=== PATIENT | female | born 1955 | race Caucasian/White ===

== ENCOUNTER 2016-08-17 14:52 | Emergency (ER) | payer OTHER ==
[~2016-08-17] VITALS: Ht 170.2 cm; Wt 90.9 kg
[~2016-08-17 14:52] MED LIST: ALBU18HF INH; BECL8.7A5 IH; DOCU250C2 PO; DULO30CA PO; ESTR0.5T PO; GABA-502 PO; HYDR25CA PO; IMI100 PO; LISI-567 PO; METH-313 PO; METO100T3 PO; ONDA4TAB6 PO; OXYC-169 PO; OXYC40TA46 PO; POLY17PO6 PO; PROM25TA14 PO; SENN8.6T63 PO; SOLI10TA PO; TRIA60LO12 TOPICAL; UREA 40%; [UNRECOGNIZED DRUG - OTHER]
[2016-08-17 14:54] VITALS: BP 145/101; PULSE 75; RESP 20; O2SAT 96
--- NOTE | 2016-08-17 15:15 | ED.REPORT ---
HPI-Chest Pain 40 and Over Date of Service Aug 17, 2016 ED Provider: Marlon Fuentes MD This is a 61 year old female with a history of hypertension, chronic back pain , s/p c-spine surgeries and multiple low back surgeries presenting to the emergency department complaining of chest pain that began 16 hours ago. Pt visited the fire station due to chest pain where BP was measured at 159/110, she drove to the ED at that time. Pt discusses at length increased stress due to domestic disputes regarding her ill mother who she is the caregiver for. At this time she reports improved chest pain associated with mild dyspnea and headache. Denies diaphoresis, nausea, vomiting, blurry vision, lightheadedness, constipation, diarrhea, or dysuria. Nursing Notes Stated Complaint: BLOOD PRESSURE HIGH 155/110 Chief Complaint: Chest Pain Nursing Notes Reviewed: Yes Allergies: Coded Allergies: Penicillins (Verified Allergy, Unknown, 11/18/15) Uncoded Allergies: ONIONS (Allergy, Unknown, 02/15/14) Scheduled Beclomethasone Dipropionate (Qvar) 8.7 Gm Aer.w.adap 2 PUFFS IH BID Duloxetine (Cymbalta) 30 Mg Capsule.dr 30 MG PO TID Estradiol (Estradiol) 0.5 Mg Tablet 0.5 MG PO DAILY Gabapentin (Gabapentin) 300 Mg Capsule 900 MG PO BIDBL Gabapentin (Gabapentin) 300 Mg Capsule 1,200 MG PO HS Lisinopril (Lisinopril) 20 Mg Tablet 20 MG PO DAILY Methocarbamol (Robaxin-750) 750 Mg Tablet 1-2 TAB PO Q8 Metoprolol Tartrate (Metoprolol Tartrate) 100 Mg Tablet 100 MG PO BIDWM Oxycodone ER (Oxycontin) 40 Mg Tab.er.12h 40 MG PO BID Oxycodone HCl/Acetaminophen (Endocet 7.5-325 mg Tablet) 1 Each Tablet 1 EACH PO q 6hrs Polyethylene Glycol 3350 (Miralax) 17 Gm Powd.pack 17 GM PO DAILY Solifenacin Succinate (Vesicare) 10 Mg Tablet 10 MG PO DAILY Triamcinolone Acetonide (Triamcinolone Acetonide) 60 Ml Lotion 1 APPLIC TOPICAL BID Scheduled PRN Albuterol Sulfate (Ventolin HFA Inhaler) 200 Puff/18 Gm Inhaler 1-2 PUFF INH Q4- 6H PRN PRN For Wheezing Docusate Sodium (Docusate Sodium) 250 Mg Capsule 250 MG PO BID PRN PRN For Constipation Hydroxyzine Pamoate (Vistaril) 25 Mg Capsule 25 MG PO QID PRN PRN muscle spasms Ondansetron (Zofran) 4 Mg Tablet 4 MG PO Q4-6H PRN PRN For Nausea Promethazine (Promethazine) 25 Mg Tablet 25 MG PO q 4-6 PRN PRN For Nausea Sennosides (Sennosides) 8.6 Mg Tablet 1-2 TAB PO PRN PRN PRN For Constipation Miscellaneous Medications ([carmol 40% topical]) Apply to affected areas 2 times every day ([pantanol 0.1% ]) Sumatriptan (Imitrex) 100 Mg Tablet 100 MG PO Take 1 tab by mouth as early as possible after onset of migraine, may repeat after 2 hours if headache returns; do not exceed 2 tabs in 24 hours. General Time Seen by MD: 15:13 Chief Complaint Other Hx Obtained From: Patient Arrived By: Walk-in Sudden in Onset?: Yes Onset Occurred: 13 - 16 hours ago Symptom Duration: Since onset Severity: Current: No pain currently Pertinent Negative: Pt denies other symptoms Recent Healthcare: No recent doctor visit, No recent hospitalization Similar Sx Previous: No Past Medical History Past Medical History 1. Hypertension. 2. Chronic back pain associated with arachnoiditis. a. Cauda equina syndrome associated with neurogenic bladder and bowel incontinence (status post colostomy). b. Narcotic habituation. 3. Status post cervical spine surgeries. 4. Status post multiple low back surgeries. 5. Anxiety with depression. 6. Chronic marijuana abuse. 7. Last seizure was on February 2014 Past Surgical History 22 back surgeries per her report Smoking History Former Smoker Social History Alcohol Use: "Social" Ambulatory Status Independent Review of Systems Constitutional: Denies: Chills, Fever Respiratory: Reports: Shortness of breath, Denies: Dyspnea on exertion, Non-productive cough Cardiovascular: Reports: Chest pain GI: Denies: Nausea, Vomiting Neurologic: Reports: Headache Complete sys rev & neg: except as marked. Physical Exam Initial Vital Signs Vital Signs (First) Date Time Temp Pulse Resp B/P Pulse Ox O2 Delivery O2 Flow Rate FiO2 08/17/16 14:54 36.2 75 20 145/101 96 Room Air Initial VS: Reviewed Head / Eyes: Atraumatic, Normocephalic, PERRL ENT: Mucous membranes moist, Conjunctiva normal, No scleral icterus Neck: Supple, Non-tender, Full range of motion Extremities: Vascular intact, Neuro intact, No swelling, No tenderness Skin: Warm, Dry, No cyanosis Neurologic: Alert, Oriented, Nonfocal Psychiatric: Mood/affect normal, Behavior normal, Normal thought content General/Constitutional: Awake, Alert Respiratory / Chest: Breath sounds NL, Breath sounds = bilat, No respiratory distress, No rales, No rhonchi, No wheezing, No stridor, No chest tenderness Cardiovascular: Regular rhythm, Heart sounds NL, No gallop, No murmurs, No rubs Abdomen: Soft, Non-tender, McBurney's non-tender, No guarding, No rebound, BS normoactive, No distention, No hernia, No palpable mass Interpretation & Diagnostics Lab Results Interpretation Result Diagram: 08/17/16 1514 08/17/16 1514 Test 08/17/16 15:14 White Blood Count 7.9th/mm3 (3.8-10.1) Red Blood Count 4.64mil/mm3 (3.90-5.20) Hemoglobin 14.5g/dL (12.0-15.6) Hematocrit 43.2% (35.0-46.0) Mean Corpuscular Volume 93.1fL (81-100) Mean Corpuscular Hemoglobin 31.3pg (27.0-35.0) Mean Corpuscular Hemoglobin Concent 33.6% (32.0-37.0) Red Cell Distribution Width 13.5% (12.3-15.4) Platelet Count 178bil/L (150-400) Neutrophils (%) (Auto) 64.4% (40-74) Lymphocytes (%) (Auto) 25.9% (14-46) Monocytes (%) (Auto) 7.2% (4-12) Eosinophils (%) (Auto) 1.8% (0-5) Basophils (%) (Auto) 0.6% (0-3) Sodium Level 143mEq/L (134-144) Potassium Level 3.8mEq/L (3.5-5.2) Chloride Level 108mEq/L (97-108) Carbon Dioxide Level 21mmol/L (18-29) Blood Urea Nitrogen 17mg/dL (6-24) Creatinine 0.83mg/dL (0.57-1.00) Estimat Glomerular Filtration Rate 101mL/min (>59) Glucose Level 101mg/dL (60-99) Calcium Level 9.4mg/dL (8.5-10.1) Magnesium Level 2.1mg/dL (1.6-2.6) Total Bilirubin 0.3mg/dL (0.0-1.2) Aspartate Amino Transf (AST/SGOT) 14U/L (0-50) Alanine Aminotransferase (ALT/SGPT) 12U/L (0-32) Alkaline Phosphatase 73U/L (25-165) Troponin T < 0.010ug/L (0.0-0.011) Total Protein 6.5g/dL (6.4-8.4) Albumin 4.2g/dL (3.4-5.0) Hold Edwards Top Tube Received (Received) ECG Interpretation ECG Interpretation: Sinus bradycardia at a rate of 46 Non-specific intraventricular conduction delay Borderline ST elevation of less than 1 mm diffuse t-wave flattening Time: 15:20 Interpreted by: ED physician X-Ray Chest Interpretation Chest Xray Interpretation: IMPRESSION: No acute cardiopulmonary disease. Dictated by: Doroteo Jeffrey RR Interpreted: Quita Meyers MD on 08/17/2016 at 15:48 Transcribed by: RUBEN on 08/17/2016 at 15:48 Re-Eval/Medical Decision Med Decision/Clinical Course This is a 61 year old female with a history of hypertension, chronic back pain , s/p c-spine surgeries and multiple low back surgeries presenting to the emergency department complaining of chest pain that began 16 hours ago. Pt visited the fire station due to chest pain where BP was measured at 159/110, she drove to the ED at that time. She reports extensive stress recently related to arguments with her sister and the ongoing care of her mother who has multiple medical problems. The patient states that her chest pain started in the setting of anxiety and arguing with her sister and has now completely resolved. She denies any cardiac history. Upon arrival she has stable vital signs and is not certainly hypertensive. She denies any symptoms suggestive of hypertensive emergency such as blurry vision or ongoing chest pain. CXR: Obtained, reviewed and interpreted by myself shows no evidence of acute infiltrates, effusions or pneumothorax. Cardiac and mediastinal silhouette normal. No bony or soft tissue abnormalities. EKG was obtained and interpreted by myself as documented above. Lab studies notable as below: CBC, CMP unremarkable Troponin negative Discussed above findings with the patient. She states that she feels reassured. Patient feels that she likely had a panic attack leading to her symptoms and based upon her presentation and workup thus far I am in agreement. She has no major cardiac risk factors and her overall presentation is unconvincing for acute coronary syndrome. The patient does not desire admission or further workup and make an informed decision to forego any further risk stratification. The patient was seen and evaluated by our social secretary provided with community resources. The patient is now much more calm and feels reassured. She has no suicidal ideation. Follow-up and return precautions were reviewed in detail she was discharged in stable condition. Counseled Regarding: Diagnosis, Lab results, Need for follow-up, When/why to return to ED Discharge & Departure Primary Impression: Non-cardiac chest pain Additional Impressions: Panic attack Hypertension Hypertension type: other secondary hypertension Hypertension goal: unspecified goal Qualified Code: I15.8 - Other secondary hypertension Caregiver with fatigue Anxiety Acute situational disturbance Disposition: Home Discharge Condition All VS Reviewed: Yes Condition: Stable Patient Instructions: Chest Pain (ED) Additional Instructions: Thank you for seeking care at emergency room. It is difficult for us to make definitive diagnoses in the ED but we believe that you are experiencing non-cardiac chest pain. Our primary goal today in the ED was to evaluate you for any life-threatening conditions. Your evaluation was reassuring. You should follow-up with your primary doctor in the next week. You should return to the ED immediately if you develop fevers, vomiting, cough, shortness of breath, worsening chest pain, lightheadedness, weakness or any other concerning signs or symptoms. Thank you for letting us partake in your care today. Referrals: Daly Mock MD (PCP) Scribe Attestation Portions of this note were transcribed by Rasheeda Corcoran. I, Dr. Fuentes personally performed the history, physical exam and medical decision-making; I reviewed and confirmed the accuracy of the information in the transcribed note. Signed by: brenna Edwards. 08/17/2016, 16:30. Marlon Fuentes MD Aug 17, 2016 15:15 RASHEEDA CORCORAN Aug 17, 2016 15:21
[2016-08-17 15:21] LABS: BASOPHILS % (AUTO) 0.6 % (0-3); EOSINOPHILS % (AUTO) 1.8 % (0-5); MONOCYTES % (AUTO) 7.2 % (4-12); Mean Corpuscular Hemoglobin 31.3 pg (27.0-35.0); Mean Corpuscular Volume 93.1 fL (81-100); NEUTROPHILS % (AUTO) 64.4 % (40-74); Platelet Count 178 bil/L (150-400)
[2016-08-17 15:59] LABS: Magnesium 2.1 mg/dL (1.6-2.6); TROPONIN T < 0.010 ug/L (0.0-0.011)
--- NOTE | 2016-08-17 16:07 | DRSVH ---
PROCEDURE: X-RAY CHEST ONE VIEW, PORTABLE ([id number]) INDICATIONS: CHEST PAIN TECHNIQUE: One view of the chest was acquired. COMPARISON: [facility], , CHEST 1VW (PORTABLE), 03/10/2014, 16:40. FINDINGS: Surgical changes and devices: Lower cervical and thoracolumbar fixation hardware present incompletely visualized. Lungs and pleura: No pleural effusions or pneumothorax. Lungs are clear. Mediastinum: Mediastinal contours appear normal. Heart size is normal. Bones and chest wall: No suspicious bony lesions. Overlying soft tissues appear unremarkable. IMPRESSION: No acute cardiopulmonary disease. Dictated by: Doroteo Jeffrey [facility] Interpreted: Quita Meyers MD on 08/17/2016 at 15:48 Transcribed by: RUBEN on 08/17/2016 at 15:48 Approved by: Quita Meyers MD, PhD on 08/17/2016 at 17:05
[2016-08-17 16:58] VITALS: BP 135/80; PULSE 54; RESP 17; O2SAT 97
== END 2016-08-17 16:58 | disposition home or self-care (01) ==
LOC: SED 14:52
DX: R07.89 Other chest pain (principal); F41.0 Panic disorder [episodic paroxysmal anxiety]; I15.8 Other secondary hypertension; R53.83 Other fatigue; F43.0 Acute stress reaction; M54.9 Dorsalgia, unspecified; F12.10 Cannabis abuse, uncomplicated; Z86.69 Personal history of other diseases of the nervous system and sense organs; Z87.891 Personal history of nicotine dependence; Z79.51 Long term (current) use of inhaled steroids; Z88.0 Allergy status to penicillin